=== PATIENT | female | born 1980 | race Caucasian/White ===

== ENCOUNTER 2017-02-22 18:37 | Emergency (ER) | payer OTHER ==
[~2017-02-22] VITALS: Ht 162.6 cm; Wt 54.5 kg
[~2017-02-22 18:37] MED LIST: DOCU100C26 PO; FER325 PO; IBUP-1542 PO; OXYC1TAB23 PO; PREN1TAB79 PO
[2017-02-22 19:13] VITALS: Ht 162.6 cm; Wt 54.5 kg
--- NOTE | 2017-02-22 21:55 | ERD ---
ER Documentation Chief Complaint Date/Time DATE: 02/22/17 TIME: 21:51 Chief Complaint RUQ pain for 1 month HPI 36-year-old female complaining of right upper quadrant abdominal pain 1 month. Pain is intermittent, worse after eating. Patient did better after omeprazole. She took 2 omeprazole's today. Denies fever or chills. Denies vomiting or diarrhea. Denies dysuria. LMP 02/02/2017. Denies medical history. Surgical history: Rectal polyp removal and fistula repair. ROS All systems reviewed and are negative except as per history of present illness. Medications Home Meds Active Scripts Omeprazole* (Omeprazole*) 40 Mg Capsule.dr, 40 MG PO DAILY, #14 CAP Prov:CALLI CHA. PEDIATRIC UROLOGIST 02/23/17 Reported Medications Ibuprofen* (Motrin*) 600 Mg Tab, 600 MG PO Q8H Y for PAIN, TAB 02/14/16 Oxycodone Hcl-Acetaminophen* (Oxycodone Hcl-Acetaminophen*) 5-325 Mg Tablet, 1 TAB PO Q6 Y for PAIN, TAB 02/14/16 Docusate Sodium* (Doc-Q-Lace*) 100 Mg Capsule, 100 MG PO DAILY, CAP 02/14/16 Ferrous Sulfate* (Ferrous Sulfate*) 325 Mg Tabec, 325 MG PO DAILY, TAB 02/14/16 Vit W-Ca,Fe,FA(<1 mg) ( Vitamins) 1 Each Tablet, 1 EACH PO DAILY, TAB 12/26/15 Allergies Allergies: Uncoded Allergies: spicy food (Allergy, Intermediate, 02/08/16) PMhx/Soc History of Surgery: Yes (CYST ON FOOT) Anesthesia Reaction: No Hx Neurological Disorder: No Hx Respiratory Disorders: No Hx Cardiac Disorders: Yes (HTN) Hx Psychiatric Problems: No Hx Miscellaneous Medical Probl: No Hx Alcohol Use: No Hx Substance Use: No Hx Tobacco Use: No Physical Exam Vitals Vital Signs Date Time Temp Pulse Resp B/P Pulse Ox O2 Delivery O2 Flow Rate FiO2 02/23/17 01:03 98.3 69 15 124/78 100 Room Air 02/22/17 19:13 98.6 87 16 135/74 97 Physical Exam General impression: Well-developed, well-nourished. Alert, oriented, in no acute distress Head: Normocephalic, atraumatic. Eyes: PERRL, EOM normal. Sclerae are normal. Conjunctiva not injected. Respiration: Normal respiratory effort. Lungs clear to auscultate bilaterally. No wheezes, rales or rhonchi. Cardiovascular: Regular rate and rhythm. No murmurs or extra heart sounds. Abdomen: Abdomen normal to inspection. Right upper quadrant and epigastric tenderness, no rebound or guarding. No masses or organomegaly. Bowel sounds normal. Back: Normal to inspection. No midline spine tenderness. No CVA tenderness. Extremities: Extremities normal to inspection, nontender. ROM normal. Neuro: Mental status normal, speech normal. ST[employer]CH[employer] grossly intact. Skin: Normal turgor. No rash or lesions. Psych: Normal mood and affect. Result Diagram: 02/22/17221802/22/172218 Results 24 hrs Laboratory Tests Test 02/22/17 22:19 02/22/17 22:45 White Blood Count 9.810^3/ul Red Blood Count 4.3910^6/ul Hemoglobin 13.7g/dl Hematocrit 39.5% Mean Corpuscular Volume 90.0fl Mean Corpuscular Hemoglobin 31.2pg Mean Corpuscular Hemoglobin Concent 34.7g/dl Red Cell Distribution Width 12.8% Platelet Count 23089^3/UL Mean Platelet Volume 9.5fl Neutrophils % 59.3% Lymphocytes % 31.0% Monocytes % 7.0% Eosinophils % 1.6% Basophils % 0.8% Nucleated Red Blood Cells % 0.0/100WBC Neutrophils # 5.810^3/ul Lymphocytes # 3.010^3/ul Monocytes # 0.710^3/ul Eosinophils # 0.210^3/ul Basophils # 0.110^3/ul Nucleated Red Blood Cells # 0.010^3/ul Sodium Level 141mmol/L Potassium Level 4.2mmol/L Chloride Level 105mmol/L Carbon Dioxide Level 24mmol/L Anion Gap 16 Blood Urea Nitrogen 20mg/dl Creatinine 0.70mg/dl Glucose Level 95mg/dl Calcium Level 9.4mg/dl Total Bilirubin 0.2mg/dl Direct Bilirubin 0.00mg/dl Indirect Bilirubin 0.2mg/dl Aspartate Amino Transf (AST/SGOT) 19IU/L Alanine Aminotransferase (ALT/SGPT) 23IU/L Alkaline Phosphatase 75IU/L Total Protein 8.0g/dl Albumin 4.6g/dl Globulin 3.40g/dl Albumin/Globulin Ratio 1.35 Lipase 121U/L Urine Color LT. YELLOW Urine Clarity CLEAR Urine pH 6.5 Urine Specific [place] 1.020 Urine Ketones NEGATIVE Urine Nitrite NEGATIVE Urine Bilirubin NEGATIVE Urine Urobilinogen 0.2 E.U./dL Urine Leukocyte Esterase NEGATIVE Urine Microscopic RBC 0-2/HPF Urine Microscopic WBC 0-2/HPF Urine Squamous Epithelial Cells MODERATE Urine Bacteria FEW Urine Hemoglobin TRACE Urine Glucose NEGATIVE% Urine Total Protein NEGATIVE PROCEDURE: US right upper quadrant CLINICAL INDICATION: Abdominal pain TECHNIQUE: Multiple real-time images were acquired of the patient's right upper abdomen utilizing a high resolution transducer. COMPARISON: 05/20/2015 FINDINGS: Liver: Normal in size, contour and echogenicity. Normal directional blood flow is seen within the patent main portal vein. The maximum dimension estimated at 15.6 cm . Gallbladder: Normal. No sonographic Genao's sign is reported. Common bile duct: Normal; 2.2 mm. There is no evidence for choledocholithiasis. Right Kidney: Normal; maximum length measured at approximately 8.0 cm. Pancreas: Visualized portions are normal. The tail is partially obscured by bowel gas. RPTAT:HJJR IMPRESSION: Normal right upper quadrant ultrasound without interval change from 05/20/2015. Physician Les Date Time Electronically viewed and signed by Physician Les on 02/22/2017 23:41 JR/ CC: CALLI CHA PEDIATRIC UROLOGIST Procedures/MDM Well-appearing 36-year-old female complaining of right upper quadrant abdominal pain 1 month. CBC, CMP, lipase, UA are all negative. Ultrasound of the gallbladder also negative for cholelithiasis. Patient reports pain worse after eating, and better after omeprazole. Likely, patient's pain is due to dyspepsia. I doubt acute appendicitis, cholecystitis, bowel obstruction, or other acute abdomen. Patient appears well, stable for discharge and outpatient management. Medical decision making shared with patient and family. Education provided to patient and family. Patient and family expressed understanding of the plan. Medications on discharge: Omeprazole. Follow-up: Primary care provider in 2-3 days or return to ED if worse. Departure Diagnosis: Primary Impression: Abdominal pain Abdominal location: epigastric Qualified Code: R10.13 - Epigastric pain Condition: Good CALLI CHA NP Feb 22, 2017 21:55
[2017-02-22 22:36] LABS: ADD SCAN DIFF NO
[2017-02-22 22:37] LABS: HEMATOCRIT 39.5 % (37.0-47.0); HEMOGLOBIN 13.7 g/dl (12.0-16.0); MEAN CORPUSCULAR HEMOGLOBIN 31.2 pg (29.0-33.0); MEAN CORPUSCULAR HGB CONC 34.7 g/dl (32.0-37.0); RED BLOOD COUNT 4.39 10^6/ul (4.20-5.40); RED CELL DISTRIBUTION WIDTH 12.8 % (11.5-14.5); WHITE BLOOD COUNT 9.8 10^3/ul (4.8-10.8)
[2017-02-22 22:38] LABS: BASOPHIL # 0.1 10^3/ul (0.0-0.1); BASOPHILS % 0.8 % (0.0-2.0); EOSINOPHILS # 0.2 10^3/ul (0.0-0.5); EOSINOPHILS % 1.6 % (0.0-7.0); MEAN PLATELET VOLUME 9.5 fl (7.4-10.4); MONOCYTE # 0.7 10^3/ul (0.3-0.9); NEUTROPHIL # 5.8 10^3/ul (1.6-7.5); NEUTROPHILS % 59.3 % (39.0-77.0); PLATELET COUNT 384 10^3/UL (140-415)
[2017-02-22 22:51] LABS: ALBUMIN 4.6 g/dl (3.3-4.9)
[2017-02-22 22:52] LABS: POTASSIUM 4.2 mmol/L (3.5-5.1)
[2017-02-22 22:54] LABS: ALBUMIN/GLOBULIN RATIO 1.35; BILIRUBIN,INDIRECT 0.2 mg/dl (0-1.1); BILIRUBIN,TOTAL 0.2 mg/dl (0.2-1.3); CREATININE 0.7 mg/dl (0.44-1.00)
[2017-02-22 22:55] LABS: CALCIUM 9.4 mg/dl (8.4-10.2)
[2017-02-22 23:01] LABS: ADD UMIC YES; URINE BILIRUBIN (Dip) NEGATIVE (NEGATIVE); URINE BLOOD (Dip) TRACE (NEGATIVE); URINE COLOR LT. YELLOW (YELLOW); URINE GLUCOSE (Dip) NEGATIVE (NEGATIVE); URINE KETONES (Dip) NEGATIVE (NEGATIVE); URINE LEUKOCYTE ESTERASE (Dip) NEGATIVE (NEGATIVE); URINE NITRITE (Dip) NEGATIVE (NEGATIVE); URINE TOTAL PROTEIN (Dip) NEGATIVE (NEGATIVE); URINE UROBILINOGEN (Dip) 0.2 E.U./dL (0.1-1.0)
[2017-02-22 23:21] LABS: BACTERIA,URINE FEW; SQUAMOUS EPITHELIAL CELL,UR MODERATE; URINE RBCS 0-2 /HPF (0)
--- NOTE | 2017-02-22 23:41 | RADRPT ---
PROCEDURE: US right upper quadrant CLINICAL INDICATION: Abdominal pain TECHNIQUE: Multiple real-time images were acquired of the patient's right upper abdomen utilizing a high resolution transducer. COMPARISON: 05/20/2015 FINDINGS: Liver: Normal in size, contour and echogenicity. Normal directional blood flow is seen within the p atent main portal vein. The maximum dimension estimated at 15.6 cm . Gallbladder: Normal. No sonographic Genao's sign is reported. Common bile duct: Normal; 2.2 mm. There is no evidence for choledocholithiasis. Right Kidney: Normal; maximum length measured at approximately 8.0 cm. Pancreas: Visualized portions are normal. The tail is partially obscured by bowel gas. RPTAT:HJJR IMPRESSION: Normal right upper quadrant ultrasound without interval change from 05/20/2015. Physician Les Date Time Electronically viewed and signed by Physician Les on 02/22/2017 23:41 /
[2017-02-23] MEDS ORDERED: OMEP40CA6 PO (00:32)
[2017-02-23 01:03] VITALS: BP 124/78; PULSE 69; RESP 15; TEMP 98.3
== END 2017-02-23 01:03 | disposition home or self-care (01) ==
LOC: FTE 18:37
DX: R10.13 Epigastric pain (principal); I10 Essential (primary) hypertension
CPT/HCPCS: 36415; 76705; 80053; 81001; 83690; 85025; Z7502; 81003

== ENCOUNTER 2017-11-12 08:50 | Day surgery (SDC) | END 2017-11-12 14:25 | disposition home or self-care (01) ==

== ENCOUNTER 2019-03-05 10:18 | Emergency (ER) | payer OTHER ==
[~2019-03-05] VITALS: Ht 147.3 cm; Wt 60.9 kg
[2019-03-05 10:22] VITALS: Ht 147.3 cm; Wt 60.9 kg
[2019-03-05 13:10] VITALS: BP 130/70; PULSE 74; RESP 16
--- NOTE | 2019-03-05 13:31 | ERD ---
ER Documentation Chief Complaint Chief Complaint PT with VB since this morning, 6 weeks HPI 39-year-old female presenting with vaginal bleeding since this morning. Patient has had some mild spotting with dark in color. Patient is about 6 weeks . LNMP January 16. G4, . Denies medical problems. NKDA. Surgical history . Social history denies ROS All systems reviewed and are negative except as per history of present illness. Allergies Allergies: Uncoded Allergies: spicy food (Allergy, Intermediate, 02/08/16) PMhx/Soc History of Surgery: Yes (EYE SURGERY, FOOT SURGERY, HEMORRHOID SURGERY, FISTULA SURGERY) Anesthesia Reaction: No Hx Neurological Disorder: No Hx Respiratory Disorders: No Hx Cardiac Disorders: No Hx Psychiatric Problems: No Hx Miscellaneous Medical Probl: No Hx Alcohol Use: No Hx Substance Use: No Hx Tobacco Use: No Smoking Status: Never smoker FmHx Family History: No diabetes, No coronary disease, No other Physical Exam Vitals Vital Signs Date Temp Pulse Resp B/P (MAP) Pulse Ox O2 O2 Flow FiO2 Time Delivery Rate 03/05/19 74 16 130/70 100 Room Air 13:10 (90) 03/05/19 98.3 79 16 142/67 100 10:22 (92) Physical Exam GENERAL: The patient is well-appearing, well-nourished, in no acute distress HEENT: Atraumatic. Conjunctivae are pink. Pupils equal, round, and reactive to light. There is no scleral icterus. Tympanic membranes clear bilaterally. Or opharynx clear. No nystagmus or photophobia. NECK: C-spine is soft and supple. There is no meningismus. There is no cervical lymphadenopathy. CHEST: Clear to auscultation bilaterally. There are no rales, wheezes or rhonchi. HEART: Regular rate and rhythm. No murmurs, clicks, rubs or gallops. ABDOMEN:Soft, nontender and nondistended. Good bowel sounds. No rebound or guarding. No gross peritonitis. No gross organomegaly or masses. No Genao sign or McBurney point tenderness. Result Diagram: 03/05/19 1055 Results 24 hrs Laboratory Tests Test 03/05/19 10:55 White Blood Count 7.5 10^3/ul Red Blood Count 4.52 10^6/ul Hemoglobin 13.5 g/dl Hematocrit 40.0 % Mean Corpuscular Volume 88.5 fl Mean Corpuscular Hemoglobin 29.9 pg Mean Corpuscular Hemoglobin Concent 33.8 g/dl Red Cell Distribution Width 13.3 % Platelet Count 410 10^3/UL Mean Platelet Volume 9.6 fl Immature Granulocytes % 0.300 % Neutrophils % 59.7 % Lymphocytes % 30.3 % Monocytes % 7.2 % Eosinophils % 1.3 % Basophils % 1.2 % Nucleated Red Blood Cells % 0.0 /100WBC Immature Granulocytes # 0.020 10^3/ul Neutrophils # 4.5 10^3/ul Lymphocytes # 2.3 10^3/ul Monocytes # 0.5 10^3/ul Eosinophils # 0.1 10^3/ul Basophils # 0.1 10^3/ul Nucleated Red Blood Cells # 0.0 10^3/ul Urine Color RED Urine Clarity CLEAR Urine pH 8.0 Urine Specific [place] 1.004 Urine Ketones NEGATIVE mg/dL Urine Nitrite NEGATIVE mg/dL Urine Bilirubin NEGATIVE mg/dL Urine Urobilinogen NEGATIVE mg/dL Urine Leukocyte Esterase NEGATIVE Nj/ul Urine Microscopic RBC 1 /HPF Urine Microscopic WBC 0 /HPF Urine Bacteria FEW /HPF Urine Hemoglobin 1+ mg/dL Urine Glucose NEGATIVE mg/dL Urine Total Protein NEGATIVE mg/dl Beta HCG, Quantitative 68984.0 mIU/ml Procedures/MDM DIAGNOSTIC IMAGING REPORT Patient: ISABELA DE JESUS : 1980 Age: 39 Sex: F MR #: [id number] DOS: 03/05/19 1042 Ordering MD: AFRICA REYNA PA-C Location: [facility] Room/Bed: PROCEDURE: OB Limited. CLINICAL INDICATION: with pelvic pain. Vaginal bleeding. TECHNIQUE: Transabdominal and transvaginal color flow, Doppler and falcon scale ultrasound images of the pelvis were obtained. COMPARISON: No prior studies are available for comparison. FINDINGS: Intrauterine gestation: Age: 6 weeks 6 days. Mean crown-rump length: 0.9 cm. Mean gestational sac diameter: 1.7 cm. Yolk sac: Not visualized. heart rate: 136 bpm. Subchorionic collection: 1.1 x 0.7 cm debris containing collection adjacent to the gestational sac. Uterus: Masses: None. Nabothian cysts: None. Right ovary: Not well visualized. Left ovary: Not well visualized. Adnexae: Masses: None. Fluid: None. IMPRESSION: Single live intrauterine with an estimated gestational age of 6 weeks 6 days, corresponding to an estimated date of delivery of October 23, 2019. Continued follow-up to assess for normal development is recommended. Small subchorionic hemorrhage. Close continued follow-up to assess stability is recommended. mdm; 39-year-old female presenting with vaginal bleeding. I have low suspicion for ectopic . Patient is at heightened risk for miscarriage however normal is seen within the uterus today. Patient does not require RhoGam and she is Rh+. Urine is negative. Hemoglobin stable. Patient is discharged with strict ER precautions and told to follow-up with primary care. Patient is told symptoms change or worsen to return immediately to the ER. All questions answered at discharge Departure Diagnosis: Primary Impression: Vaginal bleeding Condition: Stable Patient Instructions: Vaginal Bleed in Referrals: [facility] [address] [facility] [address] [place] [address]ABUSLEME CHARY [address] [place] [address] [facility] [address] [place] [address] [address] [facility] [address] [facility], [address], [facility] [address] [address] [address] [place] [address] [facility] [address] [place] [address] [phone] [facility] [address] - [address] [address], [facility] [address] [address] MANUEL, [place] [address] [facility]. [address], [place] [address] [address] [address] [place] [address] Additional Instructions: FOLLOW UP WITH YOUR PRIMARY CARE PHYSICIAN TOMORROW.Return to this facility if you are not improving as expected. BENJAMÍN REYNA PA-C March 05, 2019 13:31
== END 2019-03-05 13:10 | disposition home or self-care (01) ==
LOC: FTE 10:18
DX: O20.9 Hemorrhage in early pregnancy, unspecified (principal); R10.2 Pelvic and perineal pain; Z3A.01 Less than 8 weeks gestation of pregnancy
CPT/HCPCS: 36415; 76801; 81001; 84702; 85025; 86900; 86901; Z7502

== ENCOUNTER → 2019-06-02 | Emergency (ER) | payer OTHER ==
[~2019-06-02] VITALS: Ht 172.7 cm; Wt 63.3 kg
[2019-06-02 03:10] VITALS: BP 128/65; PULSE 85; RESP 19; Ht 172.7 cm; Wt 63.3 kg
--- NOTE | 2019-06-02 04:13 | ERD ---
ER Documentation Chief Complaint Chief Complaint 18WK,PELVIC PAIN; STATES LIFTING CARSEAT AND NOW HAVING PAIN NO GI S/S HPI 39-year-old female, G4, P1 at approximately 18 weeks by LMP, presents the emergency department, complaining of pelvic pressure for 1 day. The patient denies vaginal bleeding, no fever, no abdominal pain, no urinary symptoms. ROS All systems reviewed and are negative except as per history of present illness. Allergies Allergies: Uncoded Allergies: spicy food (Allergy, Intermediate, 02/08/16) PMhx/Soc History of Surgery: Yes (EYE SURGERY, FOOT SURGERY, HEMORRHOID SURGERY, FISTULA SURGERY) Anesthesia Reaction: No Hx Neurological Disorder: No Hx Respiratory Disorders: No Hx Cardiac Disorders: No Hx Psychiatric Problems: No Hx Miscellaneous Medical Probl: No Hx Alcohol Use: No Hx Substance Use: No Hx Tobacco Use: No Smoking Status: Never smoker FmHx Family History: No diabetes, No coronary disease Physical Exam Vitals Vital Signs Date Temp Pulse Resp B/P (MAP) Pulse Ox O2 O2 Flow FiO2 Time Delivery Rate 06/02/19 98.7 85 19 128/65 99 03:10 (86) Physical Exam Const: No acute distress Head: Atraumatic Eyes: Normal Conjunctiva ENT: Normal External Ears, Nose and Mouth. Neck: Full range of motion. No meningismus. Resp: Clear to auscultation bilaterally Cardio: Regular rate and rhythm, no murmurs Abd: Soft, non tender, non distended. Normal bowel sounds Skin: No petechiae or rashes Back: No midline or flank tenderness Ext: No cyanosis, or edema Neur: Awake and alert Psych: Normal Mood and Affect Results 24 hrs Laboratory Tests Test 06/02/19 04:42 Bedside Urine pH (LAB) 7.0 Bedside Urine Protein (LAB) Negative Bedside Urine Glucose (UA) Negative Bedside Urine Ketones (LAB) Negative Bedside Urine Blood 1+ Bedside Urine Nitrite (LAB) Negative Bedside Urine Leukocyte Esterase (L Negative Patient: ISABELA DE JESUS : 1980 Age: 39 Sex: F MR #: [id number] DOS: 06/02/19 0410 Ordering MD: GRETEL WINN MD Location: [facility] Room/Bed: PROCEDURE: US OB > 14 weeks. CLINICAL INDICATION: Pelvic pressure TECHNIQUE: Multiple sonographic images of the pelvis were obtained. The pilar ges were reviewed on a PACS workstation. COMPARISON: 03/05/2019 FINDINGS: There is a single live intrauterine gestation. Cardiac activity is present with 163 beats per minute. Variable presentation. Measurements were made in order to determine age. The results are as follows: BPD = 4.52 cm 19 weeks 5 days HC = 16.95 cm 19 weeks 4 days AC = 14.75 cm 20 weeks 0 days FL = 3.21 cm 20 weeks 0 days Estimated gestational age of approximately 19 weeks 6 days. The estimated date of delivery is 10/21/2019. Estimated weight = 323 grams, LMP percentile 52%. No anatomic abnormalities demonstrated. The placenta is posterior. Amniotic fluid volume appears adequate, MVP 5.8 cm. IMPRESSION: Single live intrauterine gestation of approximately 19 weeks 6 days. Estimated date of delivery 10/21/2019. Procedures/MDM Vital signs stable, Physical exam unremarkable. Differential diagnosis include but not limited to: UTI, threatening , incomplete versus complete , ectopic , physiologic implantation bleeding, molar . Physical examination and clinical presentation most likely consistent with vaginal bleeding at 19 weeks , no sonographic evidence of abruption of subchorionic hemorrhage. During the ED course the patient remained hemodynamically stable and asymptomatic. Results and clinical impression discussed with patient who agrees with management. The patient is stable to be treated outpatient and will be discharged home with close monitoring and follow-up in 2 days with her primary physician. Bed rest and pelvic rest recommended until further medical evaluation. The patient was instructed regarding the outcomes and the potential complications like severe bleeding and . If the patient presents severe bleeding or pain, she was instructed to return to the hospital immediately. Disclaimer: Inadvertent spelling and grammatical errors are likely due to EHR/dictation software use and do not reflect on the overall quality of patient care. Also, please note that the electronic time recorded on this note does not necessarily reflect the actual time of the patient encounter. Departure Diagnosis: Primary Impression: 19 weeks gestation of Condition: Stable Additional Instructions: Muchas nellie por [facility] para márquez servicio. Esperamos que en márquez visita a la mar de emergencia márquez problema medico haya sido solucionado y que se sienta mucho mejor. Para estar seguros que márquez mejoria sigue en proceso, le pedimos el favor de hacer jv france de seguimiento medico con márquez doctor primario en los proximos 2-4 fam. Lleve con usted estos documentos y las medicinas recetadas. Si soni sintomas empeoran, NO SE ESPERE, por favor regrese a mar de emergencia INMEDIATAMENTE. En walter que usted no tenga un mdico de atencin primaria: Llame al mdico o clnica comunitaria de referencia que aparece abajo riaz las horas de consultorio para hacer jv france para que le vean. CLINICAS: [facility] [phone] [facility] [phone] [facility] [phone] [facility] 048 [phone] [facility] [phone] [address] [facility]. [phone] GRETEL CERNA MD Jun 02, 2019 04:13
== END | disposition home or self-care (01) ==
LOC: FTE 02:58
DX: O26.892 Other specified pregnancy related conditions, second trimester (principal); R10.2 Pelvic and perineal pain
CPT/HCPCS: 76805; 81003; Z7502

== ENCOUNTER 2019-07-09 15:59 | Outpatient (CLI) | payer OTHER ==
[~2019-07-09] VITALS: Ht 149.9 cm; Wt 66.1 kg
[2019-07-09 18:28] VITALS: BP 102/61; PULSE 86; RESP 20; Ht 149.9 cm; Wt 66.1 kg
== END 2019-07-09 20:45 | disposition home or self-care (01) ==
LOC: OBT 15:59 → L-D 16:01 → PP1 18:17 → OBT 20:40
PROVIDERS: ATTEND Obstetrics & Gynecology Obstetrics
DX: O42.912 Preterm premature rupture of membranes, unspecified as to length of time between rupture and onset of labor, second trimester (principal); O09.522 Supervision of elderly multigravida, second trimester; Z3A.25 25 weeks gestation of pregnancy
CPT/HCPCS: 76815; 84112; Z7500; G0463